=== PATIENT | male | born 1975 ===

== ENCOUNTER 2025-05-06 07:52 | Emergency (ER) | payer SELFPAY ==
[~2025-05-06] VITALS: Ht 190.5 cm; Wt 85.0 kg
[2025-05-06 07:55] VITALS: O2SAT 100
[2025-05-06 10:09] VITALS: BP 160/99; PULSE 72; RESP 18; TEMP 36.6; O2SAT 100
== END 2025-05-06 10:44 | disposition home or self-care (01) ==
LOC: ER 07:52
DX: R05.9 Cough, unspecified (principal); J11.00 Influenza due to unidentified influenza virus with unspecified type of pneumonia; Z55.6 Problems related to health literacy
CPT/HCPCS: 71045; 99283